=== PATIENT | female | born 1950 | race Caucasian/White ===

== ENCOUNTER 2022-04-23 03:00 | Inpatient (IN) | payer MEDICARE, OTHER ==
[~2022-04-23] VITALS: Ht 165.1 cm; Wt 63.5 kg
[2022-04-23] MEDS ORDERED: ONDANSETRON 4 MG/2 ML VIAL IV ONE (03:30)
[2022-04-23] MEDS ORDERED: MORPHINE SULFATE 2 MG/1 ML DISP.SYRIN IV ONE (03:30)
[2022-04-23] MEDS ORDERED: ONDANSETRON 4 MG/2 ML VIAL ONE ×2 (03:41→16:07)
[2022-04-23] MEDS ORDERED: MORPHINE SULFATE 2 MG/1 ML DISP.SYRIN ONE (03:41)
[2022-04-23 03:49] LABS: HEMATOCRIT 25.6 % (31.2-41.9); MEAN CORPUSCULAR HEMOGLOBIN 30.7 uug (24.7-32.8); MEAN CORPUSCULAR VOLUME 88.7 fL (75.5-95.3); PLATELET COUNT (AUTO) 256 K/uL (179-408)
[2022-04-23] MEDS ORDERED: NALOXONE 2 MG/2 ML SYRINGE ONE (04:07)
[2022-04-23] MEDS ORDERED: KETOROLAC TROMETHAMINE 30 MG INJ ONE (04:10)
[2022-04-23 04:11] LABS: ALANINE AMINOTRANSFERASE 39 U/L (14-59); ALKALINE PHOSPHATASE 95 U/L (50-136); ASPARTATE AMINOTRANSFERASE 33 U/L (15-37); BILIRUBIN,DIRECT 0.2 mg/dL (0.0-0.2); BILIRUBIN,TOTAL 0.4 mg/dL (0.2-1.0); CARBON DIOXIDE 20 mmol/L (21-32); CHLORIDE 94 mmol/L (98-107); CREATININE 1.7 mg/dL (0.6-1.3); LIPASE 67 U/L (73-393); POTASSIUM 4.7 mmol/L (3.5-5.1); TOTAL PROTEIN, SERUM 7.1 g/dL (6.4-8.2); UREA NITROGEN, BLOOD 50 mg/dL (7-18)
[2022-04-23] MEDS ORDERED: NALOXONE HCL 0.4 MG/ML AMPUL IV ONE (04:15)
[2022-04-23] MEDS ORDERED: KETOROLAC TROMETHAMINE 30 MG INJ IVP ONE (04:15)
[2022-04-23] MEDS ORDERED: NEBI5TAB8 PO (04:39)
[2022-04-23] MEDS ORDERED: LATA2.5D15 EACHEYE (04:39)
[2022-04-23] MEDS ORDERED: SITA100T PO (04:39)
[2022-04-23] MEDS ORDERED: GLIM2TAB31 PO (04:39)
[2022-04-23] MEDS ORDERED: ISOS60TA72 PO (04:39)
[2022-04-23] MEDS ORDERED: OXYB-58 PO (04:39)
[2022-04-23] MEDS ORDERED: HYDR-894 PO (04:39)
[2022-04-23] MEDS ORDERED: ONDA-104 PO (04:39)
[2022-04-23] MEDS ORDERED: PRAV40TA3 PO (04:39)
[2022-04-23] MEDS ORDERED: MINO2.5T PO (04:39)
[2022-04-23] MEDS ORDERED: FUROSEMIDE 40 MG/4 ML VIAL ONE (04:50)
[2022-04-23] MEDS ORDERED: NITROGLYCERIN 0.4 MG/TAB BOTTLE SL ONE ×2 (04:50→05:00)
[2022-04-23] MEDS ORDERED: FUROSEMIDE 40 MG/4 ML VIAL IV ONE (05:00)
--- NOTE | 2022-04-23 05:04 | NUR ---
Gave 2nd dose of Nitro SL as ordered by Dr Andrade.
[2022-04-23 05:06] LABS: GLUCOSE 337 mg/dL (74-106)
--- NOTE | 2022-04-23 05:09 | NUR ---
Gave 3rd dose of Nitro SL as ordered by Dr Andrade.
[2022-04-23] MEDS ORDERED: hydrALAZINE HCL 20 MG/1 ML VIAL IV PRN (05:45)
[2022-04-23] MEDS ORDERED: MAGNESIUM HYDROXIDE 30 ML LIQUID UDC PO PRN (05:45)
[2022-04-23] MEDS ORDERED: ALBUTEROL SULFATE 8 GM HFA.AER.AD IH PRN (05:45)
[2022-04-23] MEDS ORDERED: INSULIN REGULAR, HUMAN 300 UNITS/3 ML VIAL SQ PRN (05:45)
[2022-04-23] MEDS ORDERED: hydrALAZINE HCL 25 MG TABLET PO SCH (06:00)
[2022-04-23 06:20] LABS: *BILIRUBIN,URIN NEGATIVE (NEGATIVE); *BLOOD, URINE NEGATIVE (NEGATIVE); *CLARITY,URINE CLEAR (CLEAR); *COLOR,URINE YELLOW (YELLOW); *KETONES,URINE NEGATIVE (NEGATIVE); *UROBILINOGEN,URINE 0.2 E.U./dl (NORMAL); LEUKOCYTE ESTERASE ,URINE NEGATIVE (NEGATIVE); NITRITE, URINE NEGATIVE (NEGATIVE); UGLUCOSE 2+ (NEGATIVE)
[2022-04-23 06:48] LABS: ABG HCO3 17.6 mmol/L; ABG PCO2 36.2 mmHg (35.0-45.0); ABG PH 7.304 (7.350-7.450); ABG PO2 92.2 mmHg (75.0-100.0); ABG SITE RIGHT RADIAL; ABG TOTAL HEMOGLOBIN 9.6 G/dL (12.0-16.0); COHb 0.3 % (0.5-1.5); MetHb 0.2 % (0.0-1.5)
[2022-04-23 06:52] LABS: BACTERIA,URINE NONE SEEN /HPF (NONE SEEN); RBC,URINE 0-3 /HPF (0-3); SQUAMOUS EPITHELIAL CELL,UR FEW /HPF (NONE SEEN); WBC,URINE 0-3 /HPF (0-3)
[2022-04-23] MEDS: BLOOD SUGAR DIAGNOSTIC 1 EACH STRIP VI SCH ×4 (07:29→20:57)
[2022-04-23] MEDS ORDERED: INSULIN REGULAR, HUMAN 300 UNIT/3 ML VIAL ONE (07:34)
[2022-04-23] MEDS: INSULIN REGULAR, HUMAN 300 UNIT/3 ML VIAL SQ PRN ×2 (07:44→11:39)
[2022-04-23] MEDS ORDERED: Medication Not On Formulary EA (Nebivolol Hcl (Bystolic) 5 MG) PO SCH (09:00)
[2022-04-23] MEDS: FLUTICASONE/VILANTEROL 1 EACH BLST.W.DEV INH SCH (09:00)
[2022-04-23] MEDS: ISOSORBIDE MONONITRATE 60 MG TAB.SR.24H PO SCH (09:00)
--- NOTE | 2022-04-23 09:13 | NUR ---
PT IS RESTING IN BED COMFORTABLY. NO S/S OF ACUTE DISTRESS AT THIS TIME. PT's DOUGHTER AT THE BEDSIDE.
[2022-04-23] MEDS ORDERED: OXYBUTYNIN XL 5 MG TABSR PO ONE (09:32)
[2022-04-23] MEDS: OXYBUTYNIN XL 5 MG TABSR PO SCH (09:33)
[2022-04-23] MEDS ORDERED: ALBUTEROL SULFATE 2.5 MG/3 ML NEBU NEB PRN ×2 (10:00→10:15)
[2022-04-23 10:19] LABS: HEMATOCRIT 25.8 % (31.2-41.9); MEAN CORPUSCULAR VOLUME 89.9 fL (75.5-95.3); PLATELET COUNT (AUTO) 255 K/uL (179-408)
[2022-04-23] MEDS: METOPROLOL TARTRATE 25 MG TABLET PO SCH ×2 (10:35→20:48)
[2022-04-23 10:42] LABS: ALANINE AMINOTRANSFERASE 48 U/L (14-59); ALKALINE PHOSPHATASE 100 U/L (50-136); ASPARTATE AMINOTRANSFERASE 34 U/L (15-37); BILIRUBIN,TOTAL 0.4 mg/dL (0.2-1.0); CARBON DIOXIDE 19 mmol/L (21-32); CHLORIDE 95 mmol/L (98-107); CHOLESTEROL 173 mg/dL (<200); CREATININE 2.2 mg/dL (0.6-1.3); HDL CHOLESTEROL 32 mg/dL (40-60); PHOSPHOROUS 4.7 mg/dL (2.5-4.9); POTASSIUM 5.8 mmol/L (3.5-5.1); TOTAL PROTEIN, SERUM 7.5 g/dL (6.4-8.2); TRIGLYCERIDES 189 MG/DL (30-150); UREA NITROGEN, BLOOD 54 mg/dL (7-18)
[2022-04-23 10:45] LABS: GLUCOSE 361 mg/dL (74-106)
[2022-04-23 10:46] LABS: IRON, SERUM 47 ug/dL (50-175)
[2022-04-23 11:48] LABS: THYROID STIMULATING HORMONE 0.071 mIU/mL (0.358-3.740)
[2022-04-23] MEDS ORDERED: hydrALAZINE HCL 50 MG TABLET PO SCH ×2 (14:00→21:00)
--- NOTE | 2022-04-23 14:36 | NUR ---
PT WENT TO RESTROOM TO URINATE. GAIT IS STABLE.
[2022-04-23] MEDS ORDERED: DAPA10TA PO (15:19)
[2022-04-23] MEDS ORDERED: FLUT16SP16 NS (15:26)
[2022-04-23] MEDS ORDERED: DOXA4TAB3 PO (15:26)
[2022-04-23] MEDS ORDERED: DIPH1TAB PO (15:26)
[2022-04-23] MEDS ORDERED: SACU1TAB4 PO (15:26)
[2022-04-23] MEDS ORDERED: ASPI81TA31 PO (15:26)
[2022-04-23] MEDS ORDERED: SITA1TAB6 PO (15:26)
[2022-04-23] MEDS ORDERED: MELO-107 PO (15:26)
[2022-04-23 15:30] VITALS: BP 149/56
[2022-04-23] MEDS ORDERED: CLON0.1T PO (15:30)
[2022-04-23] MEDS ORDERED: CAPT25TA3 PO (15:30)
[2022-04-23] MEDS ORDERED: LORA10TA7 PO (15:30)
[2022-04-23] MEDS ORDERED: FEBU40TA PO (15:38)
[2022-04-23] MEDS ORDERED: CLON0.5T4 PO (15:38)
[2022-04-23] MEDS ORDERED: CYCL5TAB PO (15:38)
[2022-04-23] MEDS ORDERED: FURO20TA4 PO (15:38)
[2022-04-23] MEDS ORDERED: CARV25TA2 PO (15:38)
[2022-04-23] MEDS ORDERED: HYDR100T27 PO ×2 (15:38)
[2022-04-23] MEDS ORDERED: AZIL1TAB2 PO (15:38)
[2022-04-23] MEDS ORDERED: SILV50CR32 TP (15:38)
[2022-04-23] MEDS ORDERED: AMLO-212 PO (15:38)
[2022-04-23] MEDS ORDERED: KETO5DRO83 EACHEYE (15:38)
[2022-04-23] MEDS ORDERED: ACETAMINOPHEN 325 MG TABLET ONE (16:07)
[2022-04-23] MEDS: ONDANSETRON 4 MG/2 ML VIAL IV PRN (16:15)
[2022-04-23] MEDS: ACETAMINOPHEN 325 MG TABLET PO PRN (16:16)
[2022-04-23] MEDS ORDERED: FLUTICASONE PROP NASAL SPRAY 16 GM BOTTLE NS PRN (16:45)
[2022-04-23] MEDS ORDERED: ASPIRIN EC 325 MG TABLET.DR PO SCH (16:45)
[2022-04-23] MEDS ORDERED: ASPIRIN EC 325 MG TABLET.DR PO ONE (16:59)
[2022-04-23] MEDS ORDERED: SODIUM POLYSTYRENE SULFONATE 15 G/60 ML LIQUID UDC PO ONE ×2 (17:00→18:30)
--- NOTE | 2022-04-23 17:30 | NUR ---
Patient was admitted from ER to CCU bed 5, as MORALES status with admitting diagnosis of abdominal pain and shortness of breath. Patient is alert and oriented x 4. Sinus rhythm on the monitor with heart rate in the 60s. Blood pressure 149/56. Patient denies chest pain. On nonrebreather mask at 15L, saturating 100%. IV site in the right AC flushing, patent and intact. Will continue to monitor patient.
--- NOTE | 2022-04-23 17:32 | NUR ---
PT WAS TRANSFERED TO CCU ROOM #5. REPORT WAS GIVEN TO [facility].
[2022-04-23] MEDS ORDERED: MINOXIDIL 2.5 MG TABLET PO SCH (18:00)
[2022-04-23] MEDS: GLIMEPIRIDE 2 MG TABLET PO SCH (18:59)
[2022-04-23 19:00] VITALS: BP 139/57
--- NOTE | 2022-04-23 19:00 | NUR ---
Received report. Patient is awake, A/Ox4, denies pain at this time. On RA, O2 sat 93%. No signs of acute distress noted. IV RAC 20G patent and flushed. No signs of redness, infiltration or erythema noted. Bed at lowest position, brakes on, siderails x2. Call light within reach. Will continue to monitor closely. Rob (son-in-law) at bedside. oRb gave update on patient's daughter (Ev) contact number .
[2022-04-23 20:00] VITALS: BP 151/48
[2022-04-23] MEDS: LATANOPROST OPHT DROP 2.5 ML BOTTLE EACHEYE SCH (20:46)
[2022-04-23 21:00] VITALS: BP 118/43
[2022-04-23] MEDS ORDERED: ATORVASTATIN 10 MG TABLET PO SCH (21:00)
[2022-04-23] MEDS ORDERED: HYDRALAZINE HCL 200 MG PO SCH (21:00)
[2022-04-23 22:00] VITALS: BP 118/43
[2022-04-23 23:00] VITALS: BP 112/37
[2022-04-24] VITALS (24 sets, daily range): BP systolic 97–168; BP diastolic 36–80
--- NOTE | 2022-04-24 02:00 | NUR ---
Patient c/o chest pain, nonradiating with a pain scale of 8/10. VSS. Morphine 2mg IV PRN given as ordered. Patient c/o of , nonlabored breathing noted, NAD, O2 sat 94%. NC@2LPM given, tolerating well, O2 sat 98%. Will continue to monitor closely.
[2022-04-24] MEDS: MORPHINE SULFATE 2 MG/1 ML DISP.SYRIN IV PRN ×4 (02:07→12:34)
--- NOTE | 2022-04-24 04:00 | NUR ---
Resting comfortably. No significant change of condition noted. Will continue to monitor closely.
[2022-04-24 05:23] LABS: HEMATOCRIT 23.8 % (31.2-41.9); MEAN CORPUSCULAR HEMOGLOBIN 30.9 uug (24.7-32.8); MEAN CORPUSCULAR VOLUME 88.9 fL (75.5-95.3); PLATELET COUNT (AUTO) 262 K/uL (179-408)
[2022-04-24 06:05] LABS: THYROID STIMULATING HORMONE 0.062 mIU/mL (0.358-3.740)
[2022-04-24] MEDS: DEXTROSE 50% 50 ML DISP.SYRIN IV PRN (06:42)
[2022-04-24] MEDS: BLOOD SUGAR DIAGNOSTIC 1 EACH STRIP VI SCH ×4 (06:42→21:24)
--- NOTE | 2022-04-24 06:42 | NUR ---
BS 38. D50% given. Will recheck BS. Patient stated, "I'm hungry. Can you give me a sandwich?" Offered patient sandwich. Will continue to monitor closely.
--- NOTE | 2022-04-24 07:15 | NUR ---
Recheck BS 188. Patient is awake, alert. VSS. NAD.
[2022-04-24] MEDS ORDERED: NITROGLYCERIN 0.4 MG/TAB BOTTLE SL PRN (07:52)
[2022-04-24] MEDS ORDERED: NITROGLYCERIN 0.4 MG/TAB BOTTLE SL ONE (07:52)
[2022-04-24] MEDS ORDERED: HEPARIN/D5W DRIP 500 ML ONE (08:00)
--- NOTE | 2022-04-24 08:00 | NUR ---
Last Picker at bedside, pt c/o CP and in acute distress. New orders placed. All stock meds given as per MD order.
[2022-04-24] MEDS: FUROSEMIDE 20 MG/2 ML VIAL ONE ×4 (08:01→08:48)
[2022-04-24] MEDS ORDERED: NITROGLYCERIN IV 250 ML ONE (08:14)
[2022-04-24] MEDS ORDERED: FUROSEMIDE 20 MG/2 ML VIAL IV ONE (08:15)
[2022-04-24] MEDS ORDERED: FUROSEMIDE 40 MG/4 ML VIAL IV ONE (08:15)
[2022-04-24] MEDS: NITROGLYCERIN IV 250 ML IV PRN (08:15)
[2022-04-24] MEDS ORDERED: MORPHINE SULFATE 2 MG/1 ML DISP.SYRIN IV ONE ×2 (08:30→11:00)
[2022-04-24] MEDS ORDERED: HEPARIN SODIUM,PORCINE 5,000 UNITS/ML VIAL IV ONE (08:40)
[2022-04-24 08:43] LABS: ALANINE AMINOTRANSFERASE 52 U/L (14-59); ALKALINE PHOSPHATASE 99 U/L (50-136); ASPARTATE AMINOTRANSFERASE 52 U/L (15-37); BILIRUBIN,TOTAL 0.4 mg/dL (0.2-1.0); CARBON DIOXIDE 20 mmol/L (21-32); CHLORIDE 96 mmol/L (98-107); CREATININE 2.5 mg/dL (0.6-1.3); GLUCOSE 257 mg/dL (74-106); PHOSPHOROUS 4.8 mg/dL (2.5-4.9); POTASSIUM 4.4 mmol/L (3.5-5.1); TOTAL PROTEIN, SERUM 7.4 g/dL (6.4-8.2); UREA NITROGEN, BLOOD 55 mg/dL (7-18)
[2022-04-24] MEDS: HEPARIN/D5W DRIP 500 ML IV PRN (08:43)
[2022-04-24] MEDS ORDERED: hydrALAZINE HCL 50 MG TABLET PO SCH (09:00)
[2022-04-24] MEDS ORDERED: AMLODIPINE 5 MG TABLET PO SCH (09:00)
[2022-04-24] MEDS: FLUTICASONE/VILANTEROL 1 EACH BLST.W.DEV INH SCH (09:38)
[2022-04-24] MEDS: GLIMEPIRIDE 2 MG TABLET PO SCH ×2 (09:39→18:02)
[2022-04-24] MEDS: ISOSORBIDE MONONITRATE 60 MG TAB.SR.24H PO SCH (09:40)
[2022-04-24] MEDS: METOPROLOL TARTRATE 25 MG TABLET PO SCH ×2 (09:40→21:18)
[2022-04-24] MEDS: ASPIRIN EC 81 MG TABLET.DR PO SCH (09:42)
[2022-04-24] MEDS: ACETAMINOPHEN 325 MG TABLET PO PRN (10:12)
--- NOTE | 2022-04-24 10:37 | NUR ---
Dr. Olivas at bedside, pt still c/o CP with slight relieve from the 2 mg morphine. One time order for another 2mg morphine IVP. Will continue to monitor.
[2022-04-24] MEDS: OXYBUTYNIN XL 5 MG TABSR PO SCH (13:12)
[2022-04-24] MEDS: AMLODIPINE 5 MG TABLET PO SCH (13:13)
[2022-04-24] MEDS: INSULIN REGULAR, HUMAN 300 UNIT/3 ML VIAL SQ PRN ×3 (13:36→21:25)
[2022-04-24] MEDS: hydrALAZINE HCL 50 MG TABLET PO SCH ×2 (14:00→22:00)
--- NOTE | 2022-04-24 18:00 | NUR ---
Spoke to pt and family regarding plan transfer to [facility] once accepting movie star calls [employer]'s director labor standards to make arrangements.
--- NOTE | 2022-04-24 19:00 | NUR ---
Received report. Patient is awake, alert, denies pain at this time. VSS. NAD. On NC @0.5LPM. IV RAC 20G and LAC 22G, with ongoing Heparin drip @900U/hr and Nitro drip @15mls/hr. Campbell catheter draining well to gravity. Will continue to monitor closely.
[2022-04-24] MEDS: LATANOPROST OPHT DROP 2.5 ML BOTTLE EACHEYE SCH (21:18)
[2022-04-24] MEDS: ATORVASTATIN 40 MG TABLET PO SCH (21:18)
[2022-04-25] VITALS (62 sets, daily range): BP systolic 102–188; BP diastolic 21–77
--- NOTE | 2022-04-25 | NUR ---
Patient c/o LUQ abdominal pain, nonradiating with a pain scale of 3/10. NAD. Patient is requesting for sleeping meds. Called [facility] exchanged and spoke with Dr Ramirez. Per Dr Ramirez to give Norco5 Q4 PRN and ambien 5mg one time dose. Noted and carried out. Will continue to monitor closely.
[2022-04-25] MEDS ORDERED: ZOLPIDEM 5 MG TABLET PO ONE (00:30)
[2022-04-25] MEDS: HYDROCODONE/APAP 5-325MG TABLET PO PRN (00:35)
[2022-04-25 04:55] LABS: HEMATOCRIT 22.3 % (31.2-41.9); MEAN CORPUSCULAR HEMOGLOBIN 30.9 uug (24.7-32.8); MEAN CORPUSCULAR VOLUME 87.8 fL (75.5-95.3); PLATELET COUNT (AUTO) 256 K/uL (179-408)
[2022-04-25 05:18] LABS: CARBON DIOXIDE 23 mmol/L (21-32); CHLORIDE 96 mmol/L (98-107); CREATININE 2.5 mg/dL (0.6-1.3); MAGNESIUM 1.9 mg/dL (1.8-2.4); PHOSPHOROUS 4.7 mg/dL (2.5-4.9); POTASSIUM 3.8 mmol/L (3.5-5.1); UREA NITROGEN, BLOOD 58 mg/dL (7-18)
[2022-04-25 05:24] LABS: GLUCOSE 49 mg/dL (74-106)
[2022-04-25] MEDS: DEXTROSE 50% 50 ML DISP.SYRIN IV PRN (05:28)
[2022-04-25] MEDS: hydrALAZINE HCL 50 MG TABLET PO SCH ×3 (05:41→21:30)
--- NOTE | 2022-04-25 06:00 | NUR ---
Lab called and spoke with Ariel colon: critical lab glucose 49. Checked BS 42. Dextrose 50% given as ordered. Rechecked BS after 30 mins BS increased to 160. Dr Ramirez made aware.
[2022-04-25] MEDS: BLOOD SUGAR DIAGNOSTIC 1 EACH STRIP VI SCH ×4 (06:40→20:35)
--- NOTE | 2022-04-25 07:10 | NUR ---
Received pt. on bed easily arousable, OX 4. On NSR with Nitroglycerine drip. running. ritchie to gravity. IV access leaking and bleeding noted. Patient received on Heparin running at 1050 units/hr. with next PTT in AM. 04/26/11
--- NOTE | 2022-04-25 10:50 | NUR ---
Attending physician Dr. Amado in the unit to see and examine pt. report given. No new orders received. At this time pt and pt's daughter discussed care plan in the room.
[2022-04-25] MEDS: HEPARIN/D5W DRIP 500 ML IV PRN (11:41)
[2022-04-25] MEDS: ASPIRIN EC 81 MG TABLET.DR PO SCH (11:44)
[2022-04-25] MEDS: FLUTICASONE/VILANTEROL 1 EACH BLST.W.DEV INH SCH (11:44)
[2022-04-25] MEDS: OXYBUTYNIN XL 5 MG TABSR PO SCH (11:44)
[2022-04-25] MEDS: GLIMEPIRIDE 2 MG TABLET PO SCH ×2 (11:44→17:00)
[2022-04-25] MEDS: METOPROLOL TARTRATE 25 MG TABLET PO SCH ×2 (11:45→20:29)
[2022-04-25] MEDS: AMLODIPINE 5 MG TABLET PO SCH (11:45)
[2022-04-25] MEDS: ISOSORBIDE MONONITRATE 60 MG TAB.SR.24H PO SCH (11:46)
[2022-04-25] MEDS: INSULIN REGULAR, HUMAN 300 UNIT/3 ML VIAL SQ PRN ×3 (12:49→20:39)
--- NOTE | 2022-04-25 15:30 | NUR ---
Proofer Dr. Shen in the unit to see and examine pt. report given orders to continue with care plan received. will continue to monitor.
--- NOTE | 2022-04-25 20:00 | NUR ---
patient in bed aaox4, maex4. sr on the heart monitor .no respiratory distress noted breathing even and unlabored . patient verbalized that the bp cuff hurting her legs ,recycle bp done q30 minutes .
[2022-04-25] MEDS: ATORVASTATIN 40 MG TABLET PO SCH (20:28)
[2022-04-25] MEDS: LATANOPROST OPHT DROP 2.5 ML BOTTLE EACHEYE SCH (20:30)
--- NOTE | 2022-04-25 20:35 | NUR ---
fingerstick done and follow insulin sliding scale 202 see emar.
--- NOTE | 2022-04-25 20:45 | NUR ---
due medication tolerated and took pills with water .
--- NOTE | 2022-04-25 23:30 | NUR ---
patient verbalized she did not moved her bowel for 3 days now , as per patient she takes prunes at home ,given prune juice and advised to call for help when she needs to used the bedside commode .
[2022-04-26] VITALS (51 sets, daily range): BP systolic 105–176; BP diastolic 40–81
[2022-04-26] MEDS: ONDANSETRON 4 MG/2 ML VIAL IV PRN ×4 (01:11→21:16)
[2022-04-26] MEDS: MORPHINE SULFATE 2 MG/1 ML DISP.SYRIN IV PRN ×3 (01:11→21:17)
--- NOTE | 2022-04-26 01:11 | NUR ---
patient verbalized nauseous touching her stomach ,and also verbalized back pain and headache .given Zofran for nausea and morphine for back pain and headache .
[2022-04-26] MEDS: hydrALAZINE HCL 50 MG TABLET PO SCH ×3 (05:25→22:48)
[2022-04-26] MEDS: NITROGLYCERIN IV 250 ML IV PRN (05:26)
[2022-04-26 05:47] LABS: HEMATOCRIT 23.2 % (31.2-41.9); MEAN CORPUSCULAR HEMOGLOBIN 30.8 uug (24.7-32.8); MEAN CORPUSCULAR VOLUME 87.5 fL (75.5-95.3); PLATELET COUNT (AUTO) 257 K/uL (179-408)
[2022-04-26 06:26] LABS: ALANINE AMINOTRANSFERASE 31 U/L (14-59); ALKALINE PHOSPHATASE 83 U/L (50-136); ASPARTATE AMINOTRANSFERASE 14 U/L (15-37); BILIRUBIN,TOTAL 0.3 mg/dL (0.2-1.0); CARBON DIOXIDE 22 mmol/L (21-32); CHLORIDE 96 mmol/L (98-107); CREATININE 1.9 mg/dL (0.6-1.3); GLUCOSE 185 mg/dL (74-106); MAGNESIUM 2.1 mg/dL (1.8-2.4); POTASSIUM 4.2 mmol/L (3.5-5.1); TOTAL PROTEIN, SERUM 6.7 g/dL (6.4-8.2); UREA NITROGEN, BLOOD 51 mg/dL (7-18)
[2022-04-26] MEDS: ACETAMINOPHEN 325 MG TABLET PO PRN ×2 (06:51→15:13)
[2022-04-26] MEDS: BLOOD SUGAR DIAGNOSTIC 1 EACH STRIP VI SCH ×4 (06:52→21:02)
[2022-04-26] MEDS: INSULIN REGULAR, HUMAN 300 UNIT/3 ML VIAL SQ PRN ×4 (08:03→21:03)
[2022-04-26] MEDS: CLONAZEPAM 0.5 MG TABLET PO PRN ×2 (08:21→18:32)
[2022-04-26] MEDS: FLUTICASONE/VILANTEROL 1 EACH BLST.W.DEV INH SCH (09:56)
[2022-04-26] MEDS: GLIMEPIRIDE 2 MG TABLET PO SCH ×2 (09:56→17:02)
[2022-04-26] MEDS: AMLODIPINE 5 MG TABLET PO SCH ×2 (09:57→21:05)
[2022-04-26] MEDS: OXYBUTYNIN XL 5 MG TABSR PO SCH (09:57)
[2022-04-26] MEDS: ISOSORBIDE MONONITRATE 60 MG TAB.SR.24H PO SCH (09:57)
[2022-04-26] MEDS: ASPIRIN EC 81 MG TABLET.DR PO SCH (09:57)
[2022-04-26] MEDS: METOPROLOL TARTRATE 25 MG TABLET PO SCH ×2 (09:57→21:00)
[2022-04-26] MEDS: HYDROCODONE/APAP 5-325MG TABLET PO PRN ×2 (10:14→17:16)
[2022-04-26] MEDS: HEPARIN/D5W DRIP 500 ML IV PRN ×2 (12:26→13:06)
[2022-04-26 12:52] LABS: *OCCULT BLOOD STOOL NEGATIVE (NEGATIVE)
--- NOTE | 2022-04-26 17:47 | NUR ---
Per Dr. Shen patient is to be telemetry status after weaning off nitroglycerin drip.
--- NOTE | 2022-04-26 17:47 | NUR ---
Per Dr. Shen, patient is to be titrated off the nitroglycerin drip.
--- NOTE | 2022-04-26 19:26 | NUR ---
Per Dr. Shen, to use hydralazine 10mg IV PRN Q4H as needed for SBP more than 160 once nitroglycerin is turned off.
--- NOTE | 2022-04-26 20:30 | NUR ---
DR: DAVID came and visited patient went to patients room at this time patient is sleeping as per md he will speak to her in am he will be back tomorrow morning .
[2022-04-26] MEDS: LATANOPROST OPHT DROP 2.5 ML BOTTLE EACHEYE SCH (21:01)
[2022-04-26] MEDS: ATORVASTATIN 40 MG TABLET PO SCH (21:04)
--- NOTE | 2022-04-26 21:10 | NUR ---
assisted patient oob to the bedside commode no bm but able to pass gas .back to bed .
--- NOTE | 2022-04-26 21:26 | NUR ---
patient verbalized shes nauseous and grasping on her left abdomen verbalized abdominal pain .given morphine for pain and Zofran for nausea.continue to monitor for pain and nausea.
--- NOTE | 2022-04-26 21:42 | NUR ---
advised patient she will be npo post midnight for the procedure tomorrow . patient verbalized understanding .
[2022-04-27] VITALS (17 sets, daily range): BP systolic 118–172; BP diastolic 44–86
--- NOTE | 2022-04-27 | NUR ---
informed patient shes now officially NPO,pts, verbalized understanding .
[2022-04-27] MEDS: MORPHINE SULFATE 2 MG/1 ML DISP.SYRIN IV PRN ×2 (01:41→08:40)
--- NOTE | 2022-04-27 02:00 | NUR ---
am care done ,bath patient ,perineal care done , changed soiled linens and gown ,patient able to help in turnig and repositioning .
[2022-04-27 05:28] LABS: HEMATOCRIT 23.8 % (31.2-41.9); MEAN CORPUSCULAR HEMOGLOBIN 30.7 uug (24.7-32.8); MEAN CORPUSCULAR VOLUME 87.1 fL (75.5-95.3); PLATELET COUNT (AUTO) 268 K/uL (179-408)
[2022-04-27 05:52] LABS: CARBON DIOXIDE 25 mmol/L (21-32); CHLORIDE 98 mmol/L (98-107); GLUCOSE 85 mg/dL (74-106); MAGNESIUM 2.1 mg/dL (1.8-2.4); PHOSPHOROUS 4.3 mg/dL (2.5-4.9); POTASSIUM 4.1 mmol/L (3.5-5.1); UREA NITROGEN, BLOOD 44 mg/dL (7-18)
[2022-04-27] MEDS: hydrALAZINE HCL 50 MG TABLET PO SCH (06:04)
--- NOTE | 2022-04-27 06:16 | NUR ---
called [facility] in [place] [address]( tel NO [phone]).keeps on ringing no one is answering the phone .
--- NOTE | 2022-04-27 07:10 | NUR ---
GAVE REPORT TO EARLINE FISHER IN [facility] .
--- NOTE | 2022-04-27 07:14 | NUR ---
called and spoked with LEXI COOK [facility] DEPARTMENT SPECIALIST is requesting to discontinue the heparin and ntg drip LEXI COOK ordered d/c NTG DRIP AND HEPARIN DRIP .
[2022-04-27] MEDS: BLOOD SUGAR DIAGNOSTIC 1 EACH STRIP VI SCH (07:23)
--- NOTE | 2022-04-27 08:10 | NUR ---
Spoke with [facility] security representative MR. Wells and at this time I was informed patient has transport arranged with trip number [phone] with merchandise pickup/receiving associate time at 0930.
--- NOTE | 2022-04-27 08:30 | NUR ---
Cardiology services, Dr. Mullins in the unit to see and examine pt. report given. Orders to continue with care plan received, and implemented.
--- NOTE | 2022-04-27 08:44 | NUR ---
A call to Brendon Hernandez and He was informed of greens picker time, awaiting dcd orders.
[2022-04-27] MEDS: ISOSORBIDE MONONITRATE 60 MG TAB.SR.24H PO SCH (09:00)
[2022-04-27] MEDS: OXYBUTYNIN XL 5 MG TABSR PO SCH (09:00)
[2022-04-27] MEDS: METOPROLOL TARTRATE 25 MG TABLET PO SCH (09:00)
[2022-04-27] MEDS: GLIMEPIRIDE 2 MG TABLET PO SCH (09:00)
[2022-04-27] MEDS: ASPIRIN EC 81 MG TABLET.DR PO SCH (09:00)
[2022-04-27] MEDS: AMLODIPINE 5 MG TABLET PO SCH (09:00)
[2022-04-27] MEDS: FLUTICASONE/VILANTEROL 1 EACH BLST.W.DEV INH SCH (09:23)
[2022-04-27] MEDS ORDERED: NITR0.4T48 SL (09:28)
[2022-04-27] MEDS ORDERED: ALBU2.5V7 NEB (09:28)
[2022-04-27] MEDS ORDERED: DOCU-141 PO (09:28)
[2022-04-27] MEDS ORDERED: HYDR50TA68 PO (09:28)
[2022-04-27] MEDS ORDERED: ACET325T53 PO (09:28)
[2022-04-27] MEDS ORDERED: INSU100V28 SQ ×2 (09:28)
[2022-04-27] MEDS ORDERED: Blood Sugar Diagnostic VI (09:28)
[2022-04-27] MEDS ORDERED: DEXT50DI8 IV (09:28)
[2022-04-27] MEDS ORDERED: ASPI-618 PO (09:28)
[2022-04-27] MEDS ORDERED: Morphine Sulfate Inj IV (09:28)
[2022-04-27] MEDS ORDERED: METO25TA6 PO (09:28)
[2022-04-27] MEDS ORDERED: ONDA4VIA23 IV (09:28)
[2022-04-27] MEDS ORDERED: AMLO-212 PO (09:28)
== END 2022-04-27 19:11 | disposition short-term general hospital (02) | DRG 280 ==
LOC: ER 03:19 → TRANSITION 09:52 → CCU 16:57 → UNDODISIN 04-27 10:00
PROVIDERS: ADMIT Internal Medicine; ATTEND Internal Medicine
PROC: 5A09357 Assistance with Respiratory Ventilation, Less than 24 Consecutive Hours, Continuous Positive Airway Pressure (ICD-10-PCS; principal; 2022-04-23)
DX: I13.0 Hypertensive heart and chronic kidney disease with heart failure and stage 1 through stage 4 chronic kidney disease, or unspecified chronic kidney disease (principal); J96.01 Acute respiratory failure with hypoxia; I21.4 Non-ST elevation (NSTEMI) myocardial infarction; N17.0 Acute kidney failure with tubular necrosis; I50.43 Acute on chronic combined systolic (congestive) and diastolic (congestive) heart failure; D68.59 Other primary thrombophilia; E87.1 Hypo-osmolality and hyponatremia; Z20.822 Contact with and (suspected) exposure to COVID-19; D50.9 Iron deficiency anemia, unspecified; Z74.09 Other reduced mobility; E11.65 Type 2 diabetes mellitus with hyperglycemia; E78.5 Hyperlipidemia, unspecified; E86.1 Hypovolemia; E87.5 Hyperkalemia; I25.10 Atherosclerotic heart disease of native coronary artery without angina pectoris; M19.90 Unspecified osteoarthritis, unspecified site; M10.9 Gout, unspecified; N18.9 Chronic kidney disease, unspecified; Z79.84 Long term (current) use of oral hypoglycemic drugs; E11.22 Type 2 diabetes mellitus with diabetic chronic kidney disease; R10.9 Unspecified abdominal pain; Z79.4 Long term (current) use of insulin
CPT/HCPCS: 36415; 36600; 71045; 83550; 83605; 83690; 83735; 84100; 84443; 84484; 84550; 85025; 85730; 93005; 93307; 94660; A4663; G0378; J0360; J1644; J1815; J1885; J1940; J2270; J2310; J2405; J3490; J3535